=== PATIENT | female | born 1995 | race Caucasian/White ===

== ENCOUNTER 2023-05-17 00:19 | Day surgery (SDC) | payer OTHER, SELFPAY ==
[2023-05-15 08:27] VITALS: BMI 26.6
--- NOTE | 2023-05-15 08:31 | PC.NURSE ---
Report to the Outpatient Waiting Room, entrance under the green pavilion located off [facility], at time 0600 on date 05/17/23. Planned Procedure Time: 0730. Time changes happen often and if your time is changed the preop area will call you the afternoon before. - You and your visitor will be asked to self-screen and do not enter if you have any COVID symptoms. - A mask is optional within the hospital at this time. Patients may have clear liquids (water, carbonated beverages, clear teas, apple juice) until 3 hours prior to surgery with a maximum of 20 ounces. - No food from midnight until time of surgery - Infants may have breast milk until 4 hours before surgery, infant formula 6 hours prior to surgery. - Children will be allowed to drink immediately following surgery. If applicable, please bring a bottle or sippy cup to assist with drinking. Juice, water, soda, and popsicles are readily available. For infants on formula, please bring formula the day of surgery. Pacifiers are allowed. Take the following medications with a SIP of water the morning of surgery: NONE DO NOT STOP ANY OF YOUR OTHER PRESCRIPTION MEDICATIONS PRIOR TO SURGERY ?EXCEPT THE FOLLOWING Medications to discontinue per physician: VITAMINS/SUPPLEMENTS Date to take last dose: NO MORE UNTIL AFTER SURGERY Please no make-up, nail hungarian, hairspray, perfume, deodorant, or body powder the day of surgery. No jewelry (including any body piercings) or valuables the day of surgery, leave them at home. Please take a shower or bath the night before, or the morning of, surgery with an antibacterial soap. Wear comfortable, loose fitting clothing. - Jewelry must be removed prior to entering the operating room. Rings and piercings that are not removed may be cut off. - The hospital will not accept responsibility for valuables. - Please leave all valuables, including medications, at home the day of surgery. If you are going home after surgery, a licensed local delivery driver must drive you home. - NO public transportation without another adult if you receive anesthesia. - We recommend that an adult stay with you for 24 hours following discharge. - We also recommend that you do not drive, make important decision, drink alcoholic beverages, or take any drugs that were not prescribed by your health care provider for at least 24 hours after your discharge time. Follow any additional instructions given to you from your surgeon. If you or anyone in your household have experienced Covid symptoms in the past week, please notify your surgeon or the nurse liaison at the phone number below for possible testing. Telephone instructions given to [facility] ROUSE and asked if any additional questions and then verbalized understanding. Patient advised to call surgeon office or pre surgery nurse liaison [phone] if any additional questions.
[2023-05-17] VITALS (13 sets, daily range): BP systolic 106–131; BP diastolic 67–86; PULSE 61–89; RESP 12–20; TEMP 36.3–36.5; O2SAT 93–100
[2023-05-17] MEDS: ACETAMINOPHEN 500 MG TABLET 1000 MG PO (06:53)
[2023-05-17] MEDS: GABAPENTIN 300 MG CAPSULE PO (06:55)
[2023-05-17] MEDS: LACTATED RINGERS 1,000 ML 30 ML IV CONT (07:00)
--- NOTE | 2023-05-17 07:06 | WPDHPUPDATE1 ---
History and Physical Update Update Date/Time: 05/17/23 07:06 History and Physical has been reviewed, including an updated exam of the patient. There are NO changes in the patient's condition. Risks, benefits, and alternatives have been discussed and questions answered. Patient agrees to proceed with procedure.
--- NOTE | 2023-05-17 07:06 | PM.IMHP ---
H&P: HPI History of Present Illness Date/Time: 05/17/23 07:06 Chief Complaint: I'm here to have my tubes out Narrative: Patient presents desiring permanent sterilization with diagnostic laparoscopy and bilateral salpingectomy. Review of Systems Review of Systems: All systems reviewed & are unremarkable except as noted in HPI and below [facility] Social History Social History Smoking status: Never smoker Alcohol intake: current Alcohol use details: VERY RARE Substance use: never Substance use type: does not use Living arrangements: with family Spiritual care concerns: No Meds Home Medications and Allergies Home Medications Medication Instructions Recorded Confirmed Type melatonin 10 mg tablet 10 mg PO HS PRN Insomnia 05/15/23 05/17/23 History sertraline 50 mg tablet 50 mg PO HS 05/15/23 05/17/23 History Allergies Allergy/AdvReac Type Severity Reaction Status Date / Time No Known Allergies Allergy Verified 05/17/23 06:45 Exam Const: General: comfortable and no acute distress Eyes: General: appearance normal, both eyes and all related structures Neck: Neck: supple Resp: Effort & Inspection: normal respiratory effort Auscultation: clear to auscultation bilaterally Cardio: Rate: regular rate Rhythm: regular rhythm GI: GI Palp: Yes Soft to palpation Auscultation: normal bowel sounds Skin: General skin exam: normal color and no rashes or lesions noted Neuro: General: gait normal Speech: normal speech Motor exam (neuro): 5/5 motor strength present throughout Assessment and Plan Assessment and plan (1) Sterilization: Code(s): Z30.2 - Encounter for sterilization Status: Acute Plan Diagnostic laparoscopy, bilateral salpingectomy Quality VTE Prophylaxis VTE prophylaxis: mechanical ordered
--- NOTE | 2023-05-17 07:10 | P.PNAN_ITS ---
Anes - Initial Pre Proc Eval Procedure: Operation Date: 05/17/23 07:30 Proposed Procedures p Diagnostic Laparoscopy with Bilateral Salpingectomy - Lucy Chilel DO Date/Time: 05/17/23 07:10 Surgeon: Lucy Chilel DO Pre Op Diagnosis: desired Sterilization Patient Data Age: 27 Gender: F Height: 1.63 m Weight: 70.35 kg Allergies Allergy/AdvReac Type Severity Reaction Status Date / Time No Known Allergies Allergy Verified 05/17/23 06:45 Home Medications Medication Instructions Recorded Confirmed Type melatonin 10 mg tablet 10 mg PO HS PRN Insomnia 05/15/23 05/17/23 History sertraline 50 mg tablet 50 mg PO HS 05/15/23 05/17/23 History Patient hx anesthesia problems: none Family hx anesthesia problems: none Results Review: All pre-operative results and documents have been reviewed as part of the pre- operative evaluation. [facility] Social History Social History Smoking status: Never smoker Alcohol intake: current Alcohol use details: VERY RARE Substance use: never Substance use type: does not use Living arrangements: with family Spiritual care concerns: No Anes - Eval Final PreProcedure Day of Procedure 05/17/23 07:10 Patient weight: overweight Heart: regular rate and rhythm Lungs: clear to auscultation Airway: Mallampati scale class II Neurological: alert and oriented Last oral intake: >/= 8 hours ASA classification: II Emergent: no Anesthetic plan: proceed Anesthesia type and monitoring: general ETT and standard monitoring Results Review: All pre-operative results and documents have been reviewed as part of the pre- operative evaluation. Informed Consent: The patient's anesthetic plan and its attendant risks and benefits were discussed with the patient/family/POA. Questions were solicited and answers provided to the satisfaction of the patient/family/POA.
[2023-05-17] MEDS: SCOPOLAMINE 1.5 MG PATCH TRANSDERM (07:20)
--- NOTE | 2023-05-17 08:20 | W.PM.PROC2 ---
Procedure Note - Detailed Date of Procedure 05/17/23 Pre-op Diagnosis desired Sterilization Post-op Diagnosis Same Procedure Performed Diagnostic laparoscopy, bilateral salpingectomy Surgeon Lucy Chilel, DO Anesthesia General Indications Desires permanent sterilization Findings Normal appearing vulva and vaginal canal. Medium sized cervix. Uterus sounded to 8cm. Internally, the bowel, liver and gallbladder. The sigmoid was very redundant. The pelvic organs were normal. There was a single small omental adhesion in the right lower quadrant and some filmy adhesions from the cecum to the sidewall. Description of Procedure The patient was taken to the operating room where she was placed under general anesthesia. She was prepped and draped in the normal, sterile fashion in dorsal lithotomy position. A timeout was performed. No antibiotics were indicated. A speculum was placed in the vagina and the cervix visualized. The anterior lip was grasped with an Allis clamp and the uterus was sounded to 8cm. The cervix was dilated to accommodate a Kroner uterine manipulator. The tenaculum and speculum were removed, gloves were changed and attention turned to the abdomen. The skin below the umbilicus was grasped with 2 penetrating towel clamps and injected with local. A small incision was made and a Veress needle was introduced. Saline water drop test was done to confirm intraperitoneal placement. The abdomen was then filled to 15 mmHg with CO2 gas. The Veress needle was removed and replaced with a 5 mm Optiview trocar which was inserted under direct visualization. The abdomen revealed no evidence of bowel or vascular injury upon entry. Additional port sites in the right and left lower quadrants were identified, injected and incised. 5 mm trocars were introduced under direct visualization. The CO2 gas was lowered to 12 mmHg. Patient was then placed in steep Trendelenburg position. Survey of the abdomen and pelvis revealed the above-mentioned findings. The left tube was elevated and was cauterized and transected os using the LigaSure. The specimen was passed off through the assistant manager retail port. The procedure was repeated in identical fashion on the opposite side. Once the specimen was removed the pedicles were reinspected and found to be hemostatic. The instruments and trocars were removed and the CO2 gas was allowed to escape. The abdominal incisions were closed with subcuticular 4-0 Monocryl. The uterine manipulator was removed. The patient was taken to the recovery room in stable condition. All instrument and sponge counts were correct at the conclusion of the procedure. Estimated Blood Loss 5 IV Fluids 300 Drains No Packing No Pathology Yes Complications No immediate complications Condition Stable Disposition PACU
[2023-05-17] MEDS: HYDROmorphone HCL INJ (*CRX) 1 MG/ML SYR 0.5 MG IV PUSH ×2 (08:49→09:00)
--- NOTE | 2023-05-17 09:15 | PHAR ---
TALKED TO EVER IN RECOVERY ROOM. MEPERIDINE & METHYLENE BLUE ORDERED. CALLED [facility] TO TELL THEN ABOUT INTERACTION. RECOVERY ROOM WILL CHECK WITH OR TO SEE IF METHYLENE BLUE WAS GIVEN.
[2023-05-17] MEDS: MEPERIDINE HCL INJ (*CRX) 50 MG/ML AMPUL 12.5 MG IV PUSH (09:16)
--- NOTE | 2023-05-17 09:23 | SUR.PHASEI ---
MD Benson (anesthesia) notified of pt. excessive shivers. 12.5 mg Demerol ordered (ok to repeat once). MD Chilel called - pt. did NOT receive methylene blue per MD Chilel. Pharmacy called- Ok to give demerol per pharmacy since pt. has not received methylene blue.
--- NOTE | 2023-05-17 09:27 | PHAR ---
METHYLENE BLUE NOT GIVEN, OK FOR MEPERIDINE
== END 2023-05-17 11:30 | disposition home or self-care (01) ==
PROVIDERS: PCP Nurse Practitioner Family; Visit Provider Obstetrics & Gynecology Gynecologic Oncology
PROC: (CPT 49320; principal; 2023-05-17 07:30)
DX: Z30.2 Encounter for sterilization (principal); N73.6 Female pelvic peritoneal adhesions (postinfective); N83.8 Other noninflammatory disorders of ovary, fallopian tube and broad ligament
CPT/HCPCS: 58661; 88302; A9270; J1100; J1170; J2175; J2250; J2270; J2405; J2704; J7030; J7120; Q9968